=== PATIENT | female | born 1990 | race Caucasian/White ===

== ENCOUNTER 2016-06-25 14:19 | Outpatient (CLI) ==
--- NOTE | 2016-06-25 16:10 | DI ---
EXAM: Five views of the lumbar spine. History: Lower extremity numbness. Findings: No acute fracture or subluxation. Disc space heights are preserved. Moderate amount of colonic stool. Impression: Unremarkable lumbar spine. Moderate colonic stool.
--- NOTE | 2016-06-25 17:11 | DI ---
Examination: Five radiographic images of the cervical spine. Comparison: None available. Reason for study: Numbness. FINDINGS: No acute listhesis. The vertebral body and intervertebral body disc space heights are we ll maintained. There is no abnormal prevertebral soft tissue swelling. On the Santamaria view there is a subtle lucency through the base of the dens with apparent trabecula spanning the lucency. This ma y represent a congenital fusion anomaly or a type 3 dens fracture. Impression: Unexpected finding. Subtle lucency through the C2 vertebral body on the Santamaria view is likely a con genital fusion anomaly, but may also represent a type 3 dens fracture. Recommend correlation with a history of trauma. If clinical concern exists, a CT scan of the cervical spine may be performed. Imaging findings faxed to [facility] imaging at 1705 hours on the day of examination.
== END 2016-06-25 14:20 | disposition home or self-care (01) ==
LOC: RAD 14:19
PROVIDERS: ATTEND Physician Assistant
DX: R20.0 Anesthesia of skin (principal)

== ENCOUNTER 2016-07-04 08:30 | Outpatient (CLI) ==
--- NOTE | 2016-07-04 12:43 | MRI ---
EXAM: MRI cervical spine without and with IV contrast. DATE: 07/04/2016. HISTORY: Parasthesias of skin. Left arm and leg numbness. Difficulty walking. TECHNIQUE: Sagittal and axial T1W, T2W, and T1W postcontrast sequences of the cervical spine along with sagittal IR and coronal T2W sequences were obtained using 1.2 Belen magnet. Contrast: Omniscan - 10 ml IV. COMPARISON: C-spine series 25 June 2016. FINDINGS: Minor leftward curvature of the mid/lower C-spine is observed. No acute c-spine fracture , subluxation, osseous malignancy, or jumped facet is demonstrated. Posterior midline indentation o f the C4 superior endplate is chronic. Cervical vertebra are otherwise normal in height. Bone lali ow signal is normal. The intervertebral discs are normal in height. Cervical and upper thoracic spi nal cord reveals no syrinx, cord edema, myelomalacia, or neoplasm. No abnormal contrast enhancement is seen within the spinal cord, nerve roots, vertebral bodies, or intervertebral discs. Visible brainstem is unremarkable. Cerebellar tonsils extend near the inferior margin of the forame n magnum. There is no Chiari 1 malformation. Pituitary gland is somewhat small in size, without di stinct lesion. Visible mastoid air cells are normal. No thyroid, submandibular, or parotid gland n eoplasm is evident. Trachea, larynx, and epiglottis are unremarkable. No distinct neck mass, cervi kizzy lymphadenopathy, apical lung mass, pneumonia, or pleural effusion is detected. Segmental analysis: C2-3: Normal. C3-4: Minor posterior disc bulge (1 mm AP) does not cause cord compression or central stenosis. Ea ch foramen is patent . C4-5: Normal. C5-6: Normal. C6-7: Normal. C7-T1: Normal. T1-2: Normal. IMPRESSIONS: 1. Tiny disc bulge at C3-4. No cervical cord compression or central canal stenosis 2. No cervical foraminal stenosis or nerve root compression.
== END 2016-07-04 08:31 | disposition home or self-care (01) ==
LOC: RAD 08:30
PROVIDERS: ATTEND Physician Assistant
DX: R20.2 Paresthesia of skin (principal)

== ENCOUNTER 2016-10-30 23:53 | Emergency (ER) ==
[2016-10-31 00:06] VITALS: BP 128/90; TEMP 99; BMI 21.9
[2016-10-31 00:29] LABS: URINE PREGNANCY INTERNAL QC INTERNAL QC VALID
--- NOTE | 2016-10-31 00:52 | ED.PDOC ---
Conscious Sedation - Pre-op Assessment Weight: 114 lb Surgical History: TUBAL. LYMPH NODE UNDER LEFT ARM 1996. 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
--- NOTE | 2016-10-31 00:55 | ED.PDOC ---
General ED Provider: Dr. ERICA HOUSTON-ER Chief Complaint: Non-specific Complaint Stated Complaint: i hve knots in both breasts Time Seen by Physician: 23:55 Mode of Arrival: Walk-In Information Source: Patient Exam Limitations: No limitations Primary Care Provider: SONNY FOFANA Nursing and Triage Documentation Reviewed and Agree: Yes Skin Complaint Exam - Skin/Soft Tissue Complaint/Exam Onset/Duration: a few days Symptoms Are: Still present Timing: Constant Initial Severity: Mild Current Severity: Mild Location: bilateral breasts Character: Reports: Swelling, Raised, Painful Aggravating: Reports: Touch Associated Signs and Symptoms: Reports: Tenderness. Denies: Fever, Chills, Itching, Drainage, Bruising, Red streaks, Joint swelling Related Surgical History: Reports: None Recent Exposure to Others w/Similar Symptoms: No Skin Findings: Present: Normal findings Joint Tenderness Present: No Differential Diagnoses: Other Review of Systems - Review Of Systems Constitutional: Reports: No symptoms Eyes: Reports: No symptoms Ears, Nose, Mouth, Throat: Reports: No symptoms Respiratory: Reports: No symptoms Cardiac: Reports: No symptoms GI: Reports: No symptoms, Other : Reports: No symptoms Musculoskeletal: Reports: No symptoms Skin: Reports: Lumps Neurological: Reports: No symptoms Endocrine: Reports: No symptoms Hematologic/Lymphatic: Reports: No symptoms All Other Systems: Reviewed and Negative Past Medical History - Past Medical History Previously Healthy: Yes Endocrine: Reports: None Cardiovascular: Reports: None, Unknown Respiratory: Reports: Unknown Hematological: Reports: Unknown Gastrointestinal: Reports: Unknown Genitourinary: Reports: Unknown Neuro/Psych: Reports: Unknown Musculoskeletal: Reports: Unknown Cancer: Reports: Unknown Last Menstrual Period: OCTOBER 06 2016 - Surgical History General Surgical History: Reports: Other - Family History Family History: Reports: Unknown - Social History Smoking Status: Current every day smoker, Light tobacco smoker Hx Substance Use: No Alcohol Screening: Occasionally Lives: With family - Immunizations Tetanus Shot up to Date: (UNKNOWN) Physical Exam - Physical Exam Appearance: Well-appearing Eyes: JV, EOMI, Conjunctiva clear ENT: Ears normal, Nose normal, Oropharynx normal Neck: Supple Respiratory: Airway patent Cardiovascular: RRR, Pulses normal, No rub, No murmur GI/: Soft, Nontender, No masses, Bowel sounds normal, No Organomegaly Musculoskeletal: Normal strength, ROM intact, No edema, No calf tenderness Skin: Warm, Dry, Normal color Neurological: Sensation intact Psychiatric: Affect appropriate, Mood appropriate Critical Care Note - Critical Care Note Total Time (mins): 0 Course - Course Orders, Labs, Meds: Lab Review 10/31/16 00:20 Urine Test Negative Orders Category Date Time Status URINE Stat LAB 10/31/16 00:20 Completed URINE Stat LAB 10/31/16 00:51 Uncollected Vital Signs: Temp Pulse Resp BP Pulse Ox 10/30/16 23:54 99 F 73 18 128/90 100 Departure - Departure Time of Disposition: 00:54 Disposition: HOME SELF-CARE Discharge Problem: Breast pain Instructions: Breast Self Exam for Women (ED), Fibrocystic Breast Changes (ED) Condition: Good Pt referred to PMD for follow-up: Yes Additional Instructions: avoid caffeine, nicotine--get breast u/s and follow up wtih pcp Allergies/Adverse Reactions: Allergies No Known Drug Allergies Adverse Reaction (Verified 10/31/16 00:09) Home Medications: Ambulatory Orders Gabapentin [Neurontin] 100 mg PO BEDTIME 10/31/16 Ibuprofen 400 mg PO Q4-6H PRN 10/31/16 Disposition Discussed With: Patient, Family
== END 2016-10-31 01:05 | disposition home or self-care (01) ==
LOC: ED 23:53
DX: N64.4 Mastodynia (principal); F17.210 Nicotine dependence, cigarettes, uncomplicated
CPT/HCPCS: 81025; 99282

== ENCOUNTER 2016-10-31 10:50 | Outpatient (CLI) ==
[2016-10-31 00:06] VITALS: BMI 21.9
--- NOTE | 2016-10-31 11:21 | US ---
EXAM: Bilateral breast ultrasound. History: Bilateral breast pain and bilateral breast lumps. Technique: Multiple images through the bilateral breasts were obtained. Color duplex Doppler was u sed to interrogate vascular flow. Findings: No masses, cysts or fluid collections identified. Impression: No sonographic evidence of malignancy. Follow-up with ACR/ACS guidelines. BIRADS 2
== END 2016-10-31 10:51 | disposition home or self-care (01) ==
LOC: RAD 10:50
PROVIDERS: ATTEND Family Medicine
DX: N64.4 Mastodynia (principal)

== ENCOUNTER 2017-01-14 14:45 | Outpatient (CLI) ==
--- NOTE | 2017-01-14 15:26 | DI ---
EXAM: Chest two views HISTORY: Cough COMPARISON: None TECHNIQUE: Two views of the chest were performed FINDINGS: The lungs are clear. There is no pleural effusion or pneumothorax. The heart is normal i n size. The mediastinal contour is normal. There are no acute abnormalities of the bones. IMPRESSION: No acute cardiopulmonary process.
== END 2017-01-14 14:46 | disposition home or self-care (01) ==
LOC: RAD 14:45
PROVIDERS: ATTEND Physician Assistant
DX: R05 Cough (principal)

== ENCOUNTER 2017-07-24 17:02 | Emergency (ER) ==
[2017-07-24 17:10] VITALS: BP 131/85; TEMP 98.4; BMI 22.1
--- NOTE | 2017-07-24 17:46 | ED.PDOC ---
General ED Provider: Dr. TRIP CARO Chief Complaint: Back Pain Stated Complaint: back pain lumbar Time Seen by Physician: 17:00 Mode of Arrival: Walk-In Information Source: Patient Exam Limitations: No limitations Primary Care Provider: SONNY FOFANA Referred to ED by: Other (fall at [employer] LOW BACK PAIN NO NECK PAIN) Nursing and Triage Documentation Reviewed and Agree: Yes Reviewed sepsis parameters & appropriate labs ordered?: Yes System Inflammatory Response Syndrome: Not Applicable Sepsis Protocol: For patient's 13 years and over: Temp is 96.8 and below OR 101 and greater Pulse >90 BPM Resp >20/minute Acutely Altered Mental Status Are patient's symptoms suggestive of a new infection, such as: -Pneumonia -Skin, Soft Tissue -Endocarditis -UTI -Bone, Joint Infection -Implantable Device -Acute Abdominal Infection -Wound Infection -Meningitis -Blood Stream Catheter Infection -Unknown System Inflammatory Response Syndrome: Not Applicable Musculoskeletal Complaint Exam - Back Pain Complaint/Exam Mechanism of Injury: Reports: Trauma (FALL LUMBAR LOW BACK AFTER A FALL TODAY) Onset/Duration: THIS MORNING Symptoms Are: Still present Timing: Constant Episodes Lasting: Hours Initial Severity: Moderate Current Severity: Moderate Location: Reports: Discrete (LOW BACK ) Character: Reports: Aching Aggravating: Reports: Movements, Lifting, Bending, Walking Alleviating: Reports: Rest, Position Associated Signs and Symptoms: Denies: Swelling, Redness, Bruising, Fever, Weakness, Numbness, Tingling, Abdominal pain, Flank pain, Bladder incontinence, Bowel incontinence, Weight loss, Pain with weight bearing TAD Risk Factors: Reports: None AAA Risk Factors: Reports: None Cauda Equina Risk Factors: Reports: None Epidural Abcess Risk Factors: Reports: None Related Surgical History: Reports: None Focal Tenderness: No Paraspinal Muscle Tenderness: No Paraspinal Muscle Spasm: No Scoliosis: No Lordosis: No Kyphosis: No SLR Test: Right Negative, Left Negative Hip Motion Testing Pain: Right Negative, Left Negative Focal Weakness: Present: None Focal Sensory Loss: Present: None Gait: Present: Normal Differential Diagnoses: Strain, Sprain Review of Systems - Review Of Systems Constitutional: Reports: No symptoms Eyes: Reports: No symptoms Ears, Nose, Mouth, Throat: Reports: No symptoms Respiratory: Reports: No symptoms Cardiac: Reports: No symptoms GI: Reports: No symptoms : Reports: No symptoms Musculoskeletal: Reports: Back pain Skin: Reports: No symptoms Neurological: Reports: No symptoms Endocrine: Reports: No symptoms Hematologic/Lymphatic: Reports: No symptoms All Other Systems: Reviewed and Negative Past Medical History - Past Medical History Previously Healthy: Yes Endocrine: Reports: None Cardiovascular: Reports: None, Unknown Respiratory: Reports: Unknown Hematological: Reports: Unknown Gastrointestinal: Reports: Unknown Genitourinary: Reports: Unknown Neuro/Psych: Reports: Unknown Musculoskeletal: Reports: Unknown Cancer: Reports: Unknown Last Menstrual Period: N/A - Surgical History General Surgical History: Reports: Other - Family History Family History: Reports: Unknown - Social History Smoking Status: Current every day smoker, Light tobacco smoker Hx Substance Use: No Alcohol Screening: Occasionally Physical Exam - Physical Exam Appearance: Well-appearing, No pain distress, Well-nourished Eyes: JV, EOMI, Conjunctiva clear ENT: Ears normal, Nose normal, Oropharynx normal Respiratory: Airway patent, Breath sounds clear, Breath sounds equal, Respirations nonlabored Cardiovascular: RRR, Pulses normal, No rub, No murmur GI/: Soft, Nontender, No masses, Bowel sounds normal, No Organomegaly Musculoskeletal: Normal strength, ROM intact, No edema, No calf tenderness Skin: Warm, Dry, Normal color Neurological: Sensation intact, Motor intact, Reflexes intact, Cranial nerves intact, Alert, Oriented Psychiatric: Affect appropriate, Mood appropriate Critical Care Note - Critical Care Note Total Time (mins): 0 Course - Course Orders, Labs, Meds: Orders Category Date Time Status URINALYSIS C & S IF INDICATED Stat LAB 07/24/17 17:[address] LUMBAR SPINE W/O CONTRAST Stat RADS 07/24/17 17:17 Ordered Vital Signs: Temp Pulse Resp BP Pulse Ox 07/24/17 17:02 98.4 F 93 H 16 131/85 99 Departure - Departure Time of Disposition: 17:46 Disposition: HOME SELF-CARE Discharge Problem: Backache, Lumbar back pain Instructions: Back Pain (ED), Acute Low Back Pain (ED) Condition: Good Pt referred to PMD for follow-up: Yes IPMP verified?: No Additional Instructions: Please call your Family Physician as soon as possible to schedule a follow-up appointment. Allergies/Adverse Reactions: Allergies No Known Drug Allergies Adverse Reaction (Verified 10/31/16 00:09) Home Medications: Ambulatory Orders Ibuprofen 400 mg PO Q4-6H PRN 10/31/16 Escitalopram Oxalate 10 mg PO DAILY 07/24/17 Hydrocodone/Acetaminophen [Center 5-325 Tablet] 1 each PO Q6HR PRN #12 tablet 08/07
--- NOTE | 2017-07-24 17:47 | CT ---
EXAM: CT lumbar spine without intravenous contrast 07/24/2017. Sagittal and coronal reformatted melia ges obtained HISTORY: Back pain COMPARISON: 06/25/2016 FINDINGS: Normal anatomic alignment is maintained. Vertebral bodies show no evidence of acute fract ure. The facet joints align normally. End plate defects at the inferior aspect of L1 and superior aspect of L2 appear chronic. These are p resent on the prior study. These likely represent Schmorl's nodes. Minimal multilevel posterior disc bulge flattening the thecal sac. The spinal canal remains widely p atent. The neural foramina appear grossly patent. IMPRESSION: 1. No acute osseous abnormality of the lumbar spine. 2. 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 3. Minimal degenerative disc disease. The spinal canal and neural foramen appear grossly patent.
== END 2017-07-24 18:41 | disposition home or self-care (01) ==
LOC: ED 17:02
DX: M54.5 Low back pain (principal); W19.XXXA Unspecified fall, initial encounter; Y92.511 Restaurant or cafe as the place of occurrence of the external cause; F17.210 Nicotine dependence, cigarettes, uncomplicated
CPT/HCPCS: 81001; 99282

== ENCOUNTER 2018-06-08 09:27 | Emergency (ER) | payer OTHER ==
[2018-06-08 09:27] VITALS: BMI 22.1
[2018-06-08 09:32] VITALS: BP 124/86; TEMP 96.4
--- NOTE | 2018-06-08 09:59 | ED.PDOC ---
General ED Provider: Dr. ERICA HOUSTON-ER Chief Complaint: Fever Stated Complaint: flory had sore throat and fever Time Seen by Physician: 09:35 Mode of Arrival: Walk-In Information Source: Patient Exam Limitations: No limitations Primary Care Provider: SONNY FOFANA Nursing and Triage Documentation Reviewed and Agree: Yes Does patient meet sepsis criteria?: No System Inflammatory Response Syndrome: Not Applicable Sepsis Protocol: For patient's 13 years and over: Temp is 96.8 and below OR 101 and greater Pulse >90 BPM Resp >20/minute Acutely Altered Mental Status Are patient's symptoms suggestive of a new infection, such as: -Pneumonia -Skin, Soft Tissue -Endocarditis -UTI -Bone, Joint Infection -Implantable Device -Acute Abdominal Infection -Wound Infection -Meningitis -Blood Stream Catheter Infection -Unknown EENT Complaint Exam - Throat Complaint/Exam Onset/Duration: 24 hrs Symptoms Are: Still present Timimg: Constant Initial Severity: Mild Current Severity: Mild Aggravating: Reports: Eating Alleviating: Reports: Antipyretics Associated Signs and Symptoms: Reports: Fever, Chills, Nasal congestion Uvula Midline: Yes Melissa-tonsillar Fluctuence: No Scarlatinaform Rash Present: No Tonsillar Hypertrophy Present: Yes Tonsillar Exudate Present: No Melissa-tonsillar Swelling Present: No Adenopathy Present: Yes Splenomegaly Present: No Differential Diagnoses: Tonsillitis Review of Systems - Review Of Systems Constitutional: Reports: Fever Eyes: Reports: No symptoms Ears, Nose, Mouth, Throat: Reports: Throat pain, Throat swelling Respiratory: Reports: No symptoms Cardiac: Reports: No symptoms GI: Reports: No symptoms : Reports: No symptoms Musculoskeletal: Reports: No symptoms Skin: Reports: No symptoms Neurological: Reports: No symptoms Endocrine: Reports: No symptoms Hematologic/Lymphatic: Reports: No symptoms All Other Systems: Reviewed and Negative Past Medical History - Past Medical History Previously Healthy: Yes Endocrine: Reports: None Cardiovascular: Reports: None, Unknown Respiratory: Reports: Unknown Hematological: Reports: Unknown Gastrointestinal: Reports: Unknown Genitourinary: Reports: Unknown Neuro/Psych: Reports: Unknown Musculoskeletal: Reports: Unknown Cancer: Reports: Unknown Last Menstrual Period: 06/06 - Surgical History General Surgical History: Reports: Other - Family History Family History: Reports: Unknown - Social History Smoking Status: Current some day smoker Hx Substance Use: No Alcohol Screening: None - Immunizations Tetanus Shot up to Date: Yes Physical Exam - Physical Exam Appearance: Well-appearing Pain Distress: Mild Eyes: JV ENT: Rhinorrhea, Erythema Neck: Supple Respiratory: Airway patent, Breath sounds clear, Breath sounds equal, Respirations nonlabored Cardiovascular: RRR, Pulses normal, No rub, No murmur GI/: Soft, Nontender, No masses, Bowel sounds normal, No Organomegaly Musculoskeletal: Normal strength, ROM intact, No edema, No calf tenderness Skin: Warm, Dry, Normal color Neurological: Sensation intact, Motor intact, Reflexes intact, Cranial nerves intact, Alert, Oriented Psychiatric: Affect appropriate, Mood appropriate Critical Care Note - Critical Care Note Total Time (mins): 0 Course - Course Orders, Labs, Meds: Lab Review 06/08/18 09:35 Influ A Molecular Assay Negative by naat Influ B Molecular Assay Negative by naat Orders Category Date Time Status FLU A/B MOLECULAR Stat LAB 06/08/18 09:35 Completed MOLECULAR GROUP A STREP Stat LAB 06/08/18 09:35 Completed Vital Signs: Temp Pulse Resp BP Pulse Ox 06/08/18 09:28 96.4 F L 90 16 124/86 99 Departure - Departure Time of Disposition: 09:58 Disposition: HOME SELF-CARE Discharge Problem: Acute tonsillitis Qualifiers: Pharyngitis/tonsillitis etiology: unspecified etiology Qualified Code(s): J03.90 - Acute tonsillitis, unspecified Instructions: Tonsillitis (ED) Condition: Good Pt referred to PMD for follow-up: Yes IPMP verified?: No Additional Instructions: augmentin 875mg bid x 7 days---salt water gargles and chloseptiic spray for prn relief---recheck in 72hrs if not improved Allergies/Adverse Reactions: Allergies No Known Drug Allergies Adverse Reaction (Verified 06/08/18 09:33) Home Medications: Ambulatory Orders 1 [No Reported Medications] 06/08/18 Disposition Discussed With: Patient
== END 2018-06-08 10:04 | disposition home or self-care (01) ==
LOC: ED 09:27
DX: R50.9 Fever, unspecified (principal); J02.9 Acute pharyngitis, unspecified; R09.81 Nasal congestion; Z72.0 Tobacco use; J03.90 Acute tonsillitis, unspecified
CPT/HCPCS: 87502; 87651; 99282

== ENCOUNTER 2018-06-14 15:10 | Emergency (ER) ==
[2018-06-14 15:15] VITALS: BP 101/68; TEMP 98.9; BMI 22.3
[2018-06-14] MEDS: NORCO 5-325 PO STA (15:46)
--- NOTE | 2018-06-14 16:06 | ED.PDOC ---
General ED Provider: Dr. BARRERA VALENTIN Chief Complaint: Fever Stated Complaint: Patient is a 28 year old female who was seen in this ER last week treated with Augmentin which she could not tolorate. She thought she was getting better but started running fever again today. Still has sore throat and body aches. Tearful Time Seen by Physician: 16:03 Mode of Arrival: Walk-In Information Source: Patient Exam Limitations: No limitations Primary Care Provider: SONNY FOFANA Nursing and Triage Documentation Reviewed and Agree: Yes Does patient meet sepsis criteria?: No If yes, has appropriate treatment been initiated?: No System Inflammatory Response Syndrome: Not Applicable Sepsis Protocol: For patient's 13 years and over: Temp is 96.8 and below OR 101 and greater Pulse >90 BPM Resp >20/minute Acutely Altered Mental Status Are patient's symptoms suggestive of a new infection, such as: -Pneumonia -Skin, Soft Tissue -Endocarditis -UTI -Bone, Joint Infection -Implantable Device -Acute Abdominal Infection -Wound Infection -Meningitis -Blood Stream Catheter Infection -Unknown Review of Systems - Review Of Systems Constitutional: Reports: Loss of appetite, Other (bodyaches ) Eyes: Reports: No symptoms Ears, Nose, Mouth, Throat: Reports: Throat pain Respiratory: Reports: No symptoms Cardiac: Reports: No symptoms GI: Reports: No symptoms : Reports: No symptoms Musculoskeletal: Reports: No symptoms Skin: Reports: No symptoms Neurological: Reports: No symptoms Endocrine: Reports: No symptoms Hematologic/Lymphatic: Reports: No symptoms All Other Systems: Reviewed and Negative Past Medical History - Past Medical History Previously Healthy: Yes Endocrine: Reports: None Cardiovascular: Reports: None, Unknown Respiratory: Reports: Unknown Hematological: Reports: Unknown Gastrointestinal: Reports: Unknown Genitourinary: Reports: Unknown Neuro/Psych: Reports: Unknown Musculoskeletal: Reports: Unknown Cancer: Reports: Unknown Last Menstrual Period: jun 06 - Surgical History General Surgical History: Reports: Other - Family History Family History: Reports: Unknown - Social History Smoking Status: Current some day smoker Hx Substance Use: No Alcohol Screening: None Physical Exam - Physical Exam Appearance: Ill-appearing Ill-appearing: Moderate Pain Distress: Moderate Eyes: JV, EOMI, Conjunctiva clear Neck: Supple Respiratory: Airway patent, Breath sounds clear, Breath sounds equal, Respirations nonlabored Cardiovascular: Tachycardia GI/: Soft, Nontender, No masses, Bowel sounds normal, No Organomegaly Musculoskeletal: Normal strength, ROM intact, No edema, No calf tenderness Skin: Warm Neurological: Motor intact, Alert, Oriented Psychiatric: Anxious Critical Care Note - Critical Care Note Total Time (mins): 0 Course - Course Hematology/Chemistry: 06/14/18 15:35 06/14/18 15:35 Orders, Labs, Meds: Lab Review 06/14/18 06/14/18 06/14/18 15:21 15:35 15:35 WBC 8.04 RBC 4.37 Hgb 13.0 Hct 38.1 MCV 87.2 MCH 29.7 MCHC 34.1 RDW Coeff of Ina 11.9 Plt Count 200 Immature Gran % (Auto) 0.4 Neut % (Auto) 80.8 Lymph % (Auto) 11.7 Rowan % (Auto) 6.5 Eos % (Auto) 0.4 Baso % (Auto) 0.2 Immature Gran # (Auto) 0.0 Neut # (Auto) 6.5 Lymph # (Auto) 0.9 Rowan # (Auto) 0.5 Eos # (Auto) 0.0 Baso # (Auto) 0.0 Sodium Potassium Chloride Carbon Dioxide Anion Gap BUN Creatinine Estimated GFR (MDRD) BUN/Creatinine Ratio Glucose Calcium Total Bilirubin AST ALT Alkaline Phosphatase Total Protein Albumin Globulin Albumin/Globulin Ratio Infectious Rowan Assay Negative Influ A Molecular Assay Negative by naat Influ B Molecular Assay Negative by naat 06/14/18 15:35 WBC RBC Hgb Hct MCV MCH MCHC RDW Coeff of Ina Plt Count Immature Gran % (Auto) Neut % (Auto) Lymph % (Auto) Rowan % (Auto) Eos % (Auto) Baso % (Auto) Immature Gran # (Auto) Neut # (Auto) Lymph # (Auto) Rowan # (Auto) Eos # (Auto) Baso # (Auto) Sodium 137.7 Potassium 3.81 Chloride 103.3 Carbon Dioxide 23.2 Anion Gap 15.01 BUN 10.7 Creatinine 0.69 Estimated GFR (MDRD) 101.00 BUN/Creatinine Ratio 15.50 Glucose 94.1 Calcium 8.64 Total Bilirubin 0.46 AST 20.4 ALT 11.0 Alkaline Phosphatase 59.4 Total Protein 7.23 Albumin 4.01 Globulin 3.22 Albumin/Globulin Ratio 1.24 Infectious Rowan Assay Influ A Molecular Assay Influ B Molecular Assay Orders Category Date Time Status CBC W/ AUTO DIFF Stat LAB 06/14/18 15:35 Completed CMP [COMPREHENSIVE METABOLIC PANEL] Stat LAB 06/14/18 15:35 Completed FLU A/B MOLECULAR Stat LAB 06/14/18 15:21 Completed MONONUCLOSIS SCREEN Stat LAB 06/14/18 15:35 Completed RAPID STREP SCREEN [MOLECULAR GROUP A STREP] Stat LAB 06/14/18 15:21 Completed Hydrocodone Bit/Acetaminophen [[place] 5-325] MEDS 06/14/18 15:40 Discontinued 1 tab PO ONCE STA Medications Discontinued Medications Generic Name Dose Route Start Last Admin Trade Name Freq PRN Reason Stop Dose Admin Hydrocodone Bitart/Acetaminophen 1 tab 06/14/18 15:40 06/14/18 15:46 [place] 5-325 PO 06/14/18 15:41 1 tab ONCE STA Administration Vital Signs: Temp Pulse Resp BP Pulse Ox 06/14/18 15:10 98.9 F 121 H 18 101/68 95 Departure - Departure Time of Disposition: 16:18 Disposition: HOME SELF-CARE Discharge Problem: Viral syndrome, Fever Instructions: Viral Syndrome (ED) Condition: Good Pt referred to PMD for follow-up: Yes IPMP verified?: No Additional Instructions: Push fluids Alternate Tylenol with Motrin as needed for fever Follow up with PCP in 3 days Prescriptions: Ibuprofen [Motrin] 600 mg PO Q6H PRN #30 tablet PRN Reason: Analgesia Allergies/Adverse Reactions: Allergies No Known Drug Allergies Adverse Reaction (Verified 06/14/18 15:15) Home Medications: Ambulatory Orders Ibuprofen [Motrin] 600 mg PO Q6H PRN #30 tablet 06/14/18 Disposition Discussed With: Patient, Family
== END 2018-06-14 16:31 | disposition home or self-care (01) ==
LOC: ED 15:10
DX: R50.9 Fever, unspecified (principal); J02.9 Acute pharyngitis, unspecified; R07.0 Pain in throat; Z72.0 Tobacco use; B34.9 Viral infection, unspecified
CPT/HCPCS: 36415; 80053; 85025; 86308; 87502; 87651; 99283

== ENCOUNTER 2018-06-18 11:18 | Outpatient (CLI) ==
--- NOTE | 2018-06-18 11:42 | DI ---
Exam: Single view of the abdomen. Comparison: CT lumbar spine performed 07/24/2017. Reason for exam: Abdominal pain. FINDINGS: Nonspecific, nonobstructive bowel gas pattern with a moderate stool burden seen throughout the colon. The imaged osseous structures appear unremarkable. Impression: Nonspecific, nonobstructive bowel gas pattern with a moderate stool burden.
== END 2018-06-18 11:19 | disposition home or self-care (01) ==
LOC: RAD 11:18
PROVIDERS: ATTEND Nurse Practitioner Family
DX: R10.32 Left lower quadrant pain (principal); R10.11 Right upper quadrant pain; R00.9 Unspecified abnormalities of heart beat
CPT/HCPCS: 93005; 93010